=== PATIENT | male | born 1940 | race Asian ===

== ENCOUNTER 2017-03-15 07:31 | Day surgery (SDC) | payer MEDICARE, OTHER ==
[~2017-03-15] VITALS: Ht 165.1 cm; Wt 68.6 kg
[~2017-03-15 07:31] MED LIST: CEPH500 PO; DIPH50 PO; FentaNYL CITRATE-PF 100 MCG/2 ML VIAL IVP ONE; MIDAZOLAM HCL 2 MG/2 ML VIAL IVP ONE
[2017-03-15] MEDS ORDERED: MOXIFLOXACIN HCL 0.5% 3 ML OPHTHALMIC SOLUTION ONE (07:44)
[2017-03-15] MEDS ORDERED: DICLOFENAC SODIUM 0.1% 2.5 ML OPHTHALMIC SOLUTION ONE (07:44)
[2017-03-15] MEDS ORDERED: PHENYLEPHRINE HCL 2.5% 2 ML OPHTHALMIC SOLUTION ONE (07:44)
[2017-03-15] MEDS ORDERED: TROPICAMIDE 1% 2 ML OPHTHALMIC SOLUTION ONE (07:44)
[2017-03-15] MEDS ORDERED: RINGERS SOLUTION,LACTATED 500 ML IV ONE ×2 (07:45→08:30)
[2017-03-15] MEDS ORDERED: LOSA50TA37 PO (08:07)
[2017-03-15] MEDS ORDERED: SIMV-261 PO (08:07)
[2017-03-15] MEDS ORDERED: MULT-1259 PO (08:07)
[2017-03-15] MEDS ORDERED: ASPI81 PO (08:07)
[2017-03-15] MEDS ORDERED: CHOL200041 PO (08:07)
[2017-03-15] MEDS ORDERED: MOXIFLOXACIN HCL 0.5% 3 ML OPHTHALMIC SOLUTION OS ONE (08:30)
[2017-03-15] MEDS ORDERED: DICLOFENAC SODIUM 0.1% 2.5 ML OPHTHALMIC SOLUTION OS ONE (08:30)
[2017-03-15] MEDS: PHENYLEPHRINE HCL 2.5% 2 ML OPHTHALMIC SOLUTION OS SCH ×2 (08:34→08:39)
[2017-03-15] MEDS: TROPICAMIDE 1% 2 ML OPHTHALMIC SOLUTION OS SCH ×2 (08:34→08:39)
[2017-03-15] MEDS ORDERED: DEXAMETHASONE SOD PHOS 4 MG/ML VIAL IVP ONE (12:39)
[2017-03-15] MEDS ORDERED: HYALURONATE SODIUM 12 MG/ML 0.8 ML SYRINGE IO ONE (12:39)
[2017-03-15] MEDS ORDERED: HYALURONATE SOD/CHONDROITIN SOD 0.5 ML VIAL IO ONE (12:39)
[2017-03-15] MEDS ORDERED: TETRACAINE HCL VISCOUS 0.5% 5 ML OPHTHALMIC SOLUTION OS ONE (12:39)
[2017-03-15] MEDS ORDERED: POVIDONE-IODINE 10% 15 ML SOLUTION UD TP ONE (12:39)
[2017-03-15] MEDS ORDERED: LIDOCAINE HCL/PF 1% 2 ML VIAL IM ONE (12:39)
== END 2017-03-15 11:35 | disposition home or self-care (01) ==
LOC: SURGERY 07:31
PROVIDERS: ATTEND Specialist
DX: H25.012 Cortical age-related cataract, left eye (principal); I10 Essential (primary) hypertension; E78.5 Hyperlipidemia, unspecified
CPT/HCPCS: 66984; 93005 ×2; C1780; J2250; J3010; J7120; J1100; J3490